=== PATIENT | male | born 1940 | race Asian ===

== ENCOUNTER 2018-04-06 19:00 | Inpatient (IN) | payer MEDICARE, OTHER ==
[~2018-04-06] VITALS: Ht 160 cm; Wt 66.7 kg
[2018-04-06 21:08] VITALS: BP 138/63
[2018-04-06] MEDS: DOCUSATE SODIUM 250 MG CAPSULE PO SCH (21:39)
[2018-04-06] MEDS: SENNA 187 MG TABLET PO SCH (21:39)
[2018-04-06] MEDS: ATORVASTATIN CALCIUM 40 MG TABLET PO SCH (21:39)
[2018-04-06] MEDS: FEXOFENADINE HCL 60 MG TABLET PO SCH (21:39)
[2018-04-06 22:27] LABS: APPEARANCE,URINE CLEAR (CLEAR); BILIRUBIN,URINE NEGATIVE (NEGATIVE); GLUCOSE, URINE (UA) NEGATIVE (NEGATIVE); KETONES,URINE NEGATIVE (NEGATIVE); LEUKOCYTE ESTERASE ,URINE NEGATIVE (NEGATIVE); NITRATE,URINE NEGATIVE (NEGATIVE); OCCULT BLOOD,URINE NEGATIVE (NEGATIVE); PH,URINE 6.5 (5.0-8.0); PROTEIN,URINE NEGATIVE (NEGATIVE); UROBILINOGEN,URINE 0.2 mg/dL (<=1.0)
[2018-04-06 22:39] LABS: BACTERIA,URINE None Seen /HPF (None Seen); RBC,URINE None Seen /HPF (0-2); WBC,URINE 0-2 /HPF (0-5)
[2018-04-06 22:40] LABS: SQUAMOUS EPITHELIAL CELL,UR Rare /LPF (None Seen)
[2018-04-06 23:03] LABS: GLUCOMETER DEV NAME(LOC) 2WR 2E; GLUCOSE,POINT OF CARE 124 MG/DL (70-110)
[2018-04-07 00:19] VITALS: BP 151/74
[2018-04-07 06:09] LABS: GLUCOMETER DEV NAME(LOC) 2WR 2E; GLUCOSE,POINT OF CARE 112 MG/DL (70-110)
[2018-04-07 06:22] LABS: BASOPHILS % (AUTO) 1.7 % (0.0-2.0); EOSINOPHILS % (AUTO) 7.5 % (1.0-6.0); HEMATOCRIT 36.8 % (41-53); HEMOGLOBIN 12.9 g/dL (13.5-17.5); LYMPHOCYTES # (AUTO) 1.2 K/uL (1.0-4.8); LYMPHOCYTES % (AUTO) 17.2 % (22.0-44.0); MEAN CORPUSCULAR HEMOGLOBIN 30.2 pg (26.0-34.0); MEAN CORPUSCULAR VOLUME 86 fL (80-100); MONOCYTES # (AUTO) 0.6 K/uL (0.1-1.0); MONOCYTES % (AUTO) 8.2 % (2.0-9.0); NEUTROPHILS # (AUTO) 4.7 K/uL (1.8-7.7); NEUTROPHILS % (AUTO) 65.4 % (40.0-70.0); PLATELET COUNT (AUTO) 246 K/uL (150-450); RED BLOOD CELL COUNT(AUTO) 4.26 MIL/uL (4.50-5.90)
[2018-04-07 06:38] LABS: ALBUMIN 3.6 g/dL (3.4-5.0); BILIRUBIN,TOTAL 0.7 mg/dL (0.1-1.0); CALCIUM, TOTAL 8.8 mg/dL (8.8-10.5); CREATININE 1.28 mg/dL (0.60-1.30); POTASSIUM 4.4 mmol/L (3.5-5.1); TOTAL PROTEIN, SERUM 7.6 g/dL (6.4-8.2)
[2018-04-07 07:27] VITALS: BP 133/66
[2018-04-07] MEDS: DOCUSATE SODIUM 250 MG CAPSULE PO SCH ×2 (09:29→20:39)
[2018-04-07] MEDS: HydrOXYzine HCL 10 MG TABLET PO SCH (09:30)
[2018-04-07] MEDS: ATENOLOL 25 MG TABLET PO SCH (09:30)
[2018-04-07] MEDS: MONTELUKAST SODIUM 10 MG TABLET PO SCH (09:31)
[2018-04-07] MEDS: FLUTICASONE PROPIONATE 50 MCG/SPRAY 16 GM NASAL SPRAY NASAL SCH (09:33)
[2018-04-07] MEDS: MetFORMIN HCL 500 MG TABLET PO SCH ×2 (09:33→09:41)
[2018-04-07] MEDS: ASPIRIN 81 MG CHEWABLE TABLET PO SCH (09:34)
[2018-04-07 12:39] LABS: GLUCOMETER DEV NAME(LOC) 2WR 1B; GLUCOSE,POINT OF CARE 121 MG/DL (70-110)
[2018-04-07 15:35] VITALS: BP 132/69
[2018-04-07] MEDS: RIVAROXABAN 15 MG TABLET PO SCH (17:09)
[2018-04-07 20:04] LABS: GLUCOMETER DEV NAME(LOC) 2WR 2E; GLUCOSE,POINT OF CARE 109 MG/DL (70-110)
[2018-04-07] MEDS: ATORVASTATIN CALCIUM 40 MG TABLET PO SCH (20:39)
[2018-04-07] MEDS: FEXOFENADINE HCL 60 MG TABLET PO SCH (20:39)
[2018-04-07] MEDS: SENNA 187 MG TABLET PO SCH (20:39)
[2018-04-07 22:30] LABS: GLUCOMETER DEV NAME(LOC) 2WR 2E; GLUCOSE,POINT OF CARE 179 MG/DL (70-110)
[2018-04-07] MEDS ORDERED: ACETAMINOPHEN 325 MG TABLET PO PRN (23:30)
[2018-04-07 23:48] VITALS: BP 140/71
[2018-04-08 06:09] LABS: GLUCOMETER DEV NAME(LOC) 2WR 1B; GLUCOSE,POINT OF CARE 111 MG/DL (70-110)
[2018-04-08 07:49] VITALS: BP 150/72
[2018-04-08] MEDS: ASPIRIN 81 MG CHEWABLE TABLET PO SCH (08:56)
[2018-04-08] MEDS: MONTELUKAST SODIUM 10 MG TABLET PO SCH (08:56)
[2018-04-08] MEDS: DOCUSATE SODIUM 250 MG CAPSULE PO SCH ×2 (08:56→20:13)
[2018-04-08] MEDS: MetFORMIN HCL 500 MG TABLET PO SCH ×2 (08:56→17:26)
[2018-04-08] MEDS: ATENOLOL 25 MG TABLET PO SCH (08:56)
[2018-04-08] MEDS: FLUTICASONE PROPIONATE 50 MCG/SPRAY 16 GM NASAL SPRAY NASAL SCH (08:57)
[2018-04-08] MEDS: HydrOXYzine HCL 10 MG TABLET PO SCH (09:00)
[2018-04-08 11:54] LABS: GLUCOMETER DEV NAME(LOC) 2WR 1B; GLUCOSE,POINT OF CARE 131 MG/DL (70-110)
[2018-04-08 15:15] VITALS: BP 125/61
[2018-04-08] MEDS: RIVAROXABAN 15 MG TABLET PO SCH (17:26)
[2018-04-08 18:19] LABS: GLUCOMETER DEV NAME(LOC) 2WR 2E; GLUCOSE,POINT OF CARE 119 MG/DL (70-110)
[2018-04-08] MEDS: ATORVASTATIN CALCIUM 40 MG TABLET PO SCH (20:13)
[2018-04-08] MEDS: SENNA 187 MG TABLET PO SCH (20:13)
[2018-04-08] MEDS: FEXOFENADINE HCL 60 MG TABLET PO SCH (20:14)
[2018-04-08 21:29] LABS: GLUCOMETER DEV NAME(LOC) 2WR 1B; GLUCOSE,POINT OF CARE 114 MG/DL (70-110)
[2018-04-08 23:20] VITALS: BP 123/64
[2018-04-09] MEDS: ACETAMINOPHEN 325 MG TABLET PO PRN ×2 (00:02→08:36)
[2018-04-09 06:24] LABS: GLUCOMETER DEV NAME(LOC) 2WR 2E; GLUCOSE,POINT OF CARE 113 MG/DL (70-110)
[2018-04-09 07:30] VITALS: BP 138/75
[2018-04-09] MEDS: DOCUSATE SODIUM 250 MG CAPSULE PO SCH ×2 (08:07→20:02)
[2018-04-09] MEDS: MetFORMIN HCL 500 MG TABLET PO SCH ×2 (08:07→17:40)
[2018-04-09] MEDS: ASPIRIN 81 MG CHEWABLE TABLET PO SCH (08:07)
[2018-04-09] MEDS: ATENOLOL 25 MG TABLET PO SCH (08:08)
[2018-04-09] MEDS: FLUTICASONE PROPIONATE 50 MCG/SPRAY 16 GM NASAL SPRAY NASAL SCH (08:08)
[2018-04-09] MEDS: MONTELUKAST SODIUM 10 MG TABLET PO SCH (08:10)
[2018-04-09] MEDS ORDERED: *NON-FORMULARY MED [ENTER DRUG, DOSE, FREQ IN COMMENTS] CLINICAL ONE (11:15)
[2018-04-09] MEDS: FAMOTIDINE 20 MG TABLET PO SCH (12:15)
[2018-04-09 12:48] LABS: GLUCOMETER DEV NAME(LOC) 2WR 1B; GLUCOSE,POINT OF CARE 90 MG/DL (70-110)
[2018-04-09 15:22] VITALS: BP 136/78
[2018-04-09] MEDS: RIVAROXABAN 15 MG TABLET PO SCH (17:40)
[2018-04-09 17:59] LABS: GLUCOMETER DEV NAME(LOC) 2WR 2E; GLUCOSE,POINT OF CARE 139 MG/DL (70-110)
[2018-04-09] MEDS: SENNA 187 MG TABLET PO SCH (20:02)
[2018-04-09] MEDS: FEXOFENADINE HCL 60 MG TABLET PO SCH (20:04)
[2018-04-09] MEDS: HydrOXYzine HCL 10 MG TABLET PO SCH (20:04)
[2018-04-09] MEDS: GABAPENTIN 300 MG CAPSULE PO SCH (20:04)
[2018-04-09] MEDS: ATORVASTATIN CALCIUM 40 MG TABLET PO SCH (20:04)
[2018-04-09 22:08] LABS: GLUCOMETER DEV NAME(LOC) 2WR 2E; GLUCOSE,POINT OF CARE 145 MG/DL (70-110)
[2018-04-10 02:56] VITALS: BP 128/69
[2018-04-10 05:54] LABS: GLUCOMETER DEV NAME(LOC) 2WR 1B; GLUCOSE,POINT OF CARE 118 MG/DL (70-110)
[2018-04-10 07:19] VITALS: BP 150/80
[2018-04-10] MEDS: DOCUSATE SODIUM 250 MG CAPSULE PO SCH ×2 (07:52→21:38)
[2018-04-10] MEDS: FLUTICASONE PROPIONATE 50 MCG/SPRAY 16 GM NASAL SPRAY NASAL SCH (07:52)
[2018-04-10] MEDS: ASPIRIN 81 MG CHEWABLE TABLET PO SCH (07:53)
[2018-04-10] MEDS: MetFORMIN HCL 500 MG TABLET PO SCH ×2 (07:53→17:00)
[2018-04-10] MEDS: ATENOLOL 25 MG TABLET PO SCH (07:53)
[2018-04-10] MEDS: FAMOTIDINE 20 MG TABLET PO SCH (07:53)
[2018-04-10] MEDS: MONTELUKAST SODIUM 10 MG TABLET PO SCH (07:53)
[2018-04-10 13:28] LABS: GLUCOMETER DEV NAME(LOC) 2WR 2E; GLUCOSE,POINT OF CARE 125 MG/DL (70-110)
[2018-04-10] MEDS ORDERED: ALBUTEROL SULFATE 2.5 MG/0.5 ML NEB SOLUTION NEB PRN (14:15)
[2018-04-10 16:27] VITALS: BP 119/65
[2018-04-10] MEDS: TRIAMCINOLONE 0.1% 15 GM CREAM TP SCH (17:00)
[2018-04-10] MEDS: BACITRACIN 28.4 GM OINTMENT TP SCH ×2 (17:00→21:38)
[2018-04-10] MEDS: RIVAROXABAN 15 MG TABLET PO SCH (17:05)
[2018-04-10 18:40] LABS: GLUCOMETER DEV NAME(LOC) 2WR 1B; GLUCOSE,POINT OF CARE 125 MG/DL (70-110)
[2018-04-10] MEDS: HydrOXYzine HCL 10 MG TABLET PO SCH (21:37)
[2018-04-10] MEDS: SENNA 187 MG TABLET PO SCH (21:37)
[2018-04-10] MEDS: FEXOFENADINE HCL 60 MG TABLET PO SCH (21:37)
[2018-04-10] MEDS: GABAPENTIN 300 MG CAPSULE PO SCH (21:37)
[2018-04-10] MEDS: ATORVASTATIN CALCIUM 40 MG TABLET PO SCH (21:38)
[2018-04-10 22:14] LABS: GLUCOMETER DEV NAME(LOC) 2WR 1B; GLUCOSE,POINT OF CARE 114 MG/DL (70-110)
[2018-04-11] VITALS: BP 138/81
[2018-04-11] MEDS: MELATONIN 3 MG TABLET PO PRN ×2 (00:16→22:02)
[2018-04-11] MEDS ORDERED: DUPI300S SQ (02:45)
[2018-04-11] MEDS ORDERED: METF-960 PO (02:45)
[2018-04-11] MEDS ORDERED: FEXO-58 PO (02:45)
[2018-04-11] MEDS ORDERED: ATOR20TA86 PO (02:45)
[2018-04-11] MEDS ORDERED: ATEN25TA PO (02:45)
[2018-04-11] MEDS ORDERED: MONT10TA21 PO (02:45)
[2018-04-11] MEDS ORDERED: RIVA15T PO (02:45)
[2018-04-11] MEDS ORDERED: GLIM2 PO (02:45)
[2018-04-11] MEDS ORDERED: LORA10TA7 PO (02:45)
[2018-04-11 06:20] LABS: GLUCOMETER DEV NAME(LOC) 2WR 1B; GLUCOSE,POINT OF CARE 121 MG/DL (70-110)
[2018-04-11 08:04] VITALS: BP 146/75
[2018-04-11] MEDS: BACITRACIN 28.4 GM OINTMENT TP SCH ×3 (08:45→20:38)
[2018-04-11] MEDS: ASPIRIN 81 MG CHEWABLE TABLET PO SCH (08:45)
[2018-04-11] MEDS: TRIAMCINOLONE 0.1% 15 GM CREAM TP SCH (08:45)
[2018-04-11] MEDS: FLUTICASONE PROPIONATE 50 MCG/SPRAY 16 GM NASAL SPRAY NASAL SCH (08:45)
[2018-04-11] MEDS: DOCUSATE SODIUM 250 MG CAPSULE PO SCH ×2 (08:46→20:41)
[2018-04-11] MEDS: MONTELUKAST SODIUM 10 MG TABLET PO SCH (08:46)
[2018-04-11] MEDS: MetFORMIN HCL 500 MG TABLET PO SCH ×2 (08:46→17:00)
[2018-04-11] MEDS: ATENOLOL 25 MG TABLET PO SCH (08:46)
[2018-04-11] MEDS: FAMOTIDINE 20 MG TABLET PO SCH (08:47)
[2018-04-11] MEDS: POLYETHYLENE GLYCOL 3350 17 GM PACKET PO SCH (13:08)
[2018-04-11 14:38] LABS: GLUCOMETER DEV NAME(LOC) 2WR 2E; GLUCOSE,POINT OF CARE 91 MG/DL (70-110)
[2018-04-11] MEDS: RIVAROXABAN 15 MG TABLET PO SCH (17:00)
[2018-04-11 17:22] VITALS: BP 113/65
[2018-04-11 17:49] LABS: GLUCOMETER DEV NAME(LOC) 2WR 2E; GLUCOSE,POINT OF CARE 121 MG/DL (70-110)
[2018-04-11] MEDS: GABAPENTIN 300 MG CAPSULE PO SCH (20:39)
[2018-04-11] MEDS: ATORVASTATIN CALCIUM 40 MG TABLET PO SCH (20:39)
[2018-04-11] MEDS: HydrOXYzine HCL 10 MG TABLET PO SCH (20:39)
[2018-04-11] MEDS: FEXOFENADINE HCL 60 MG TABLET PO SCH (20:39)
[2018-04-11] MEDS: SENNA 187 MG TABLET PO SCH (20:39)
[2018-04-11 22:00] LABS: GLUCOMETER DEV NAME(LOC) 2WR 2E; GLUCOSE,POINT OF CARE 105 MG/DL (70-110)
[2018-04-11 23:21] VITALS: BP 140/66
[2018-04-12 06:35] LABS: GLUCOMETER DEV NAME(LOC) 2WR 2E; GLUCOSE,POINT OF CARE 133 MG/DL (70-110)
[2018-04-12 07:28] VITALS: BP_SYST 134; BP_SYST 145; BP_DIAS 69; BP_DIAS 78
[2018-04-12] MEDS: TRIAMCINOLONE 0.1% 15 GM CREAM TP SCH (07:59)
[2018-04-12] MEDS: FLUTICASONE PROPIONATE 50 MCG/SPRAY 16 GM NASAL SPRAY NASAL SCH (07:59)
[2018-04-12] MEDS: DOCUSATE SODIUM 250 MG CAPSULE PO SCH ×2 (07:59→21:00)
[2018-04-12] MEDS: ASPIRIN 81 MG CHEWABLE TABLET PO SCH (07:59)
[2018-04-12] MEDS: MetFORMIN HCL 500 MG TABLET PO SCH ×2 (07:59→17:13)
[2018-04-12] MEDS: BACITRACIN 28.4 GM OINTMENT TP SCH ×3 (07:59→21:54)
[2018-04-12] MEDS: POLYETHYLENE GLYCOL 3350 17 GM PACKET PO SCH (07:59)
[2018-04-12] MEDS: FAMOTIDINE 20 MG TABLET PO SCH (08:00)
[2018-04-12] MEDS: ATENOLOL 25 MG TABLET PO SCH (08:00)
[2018-04-12] MEDS: MONTELUKAST SODIUM 10 MG TABLET PO SCH (08:00)
[2018-04-12 09:36] VITALS: BP 134/77
[2018-04-12 12:59] LABS: GLUCOMETER DEV NAME(LOC) 2WR 1B; GLUCOSE,POINT OF CARE 94 MG/DL (70-110)
[2018-04-12 13:10] VITALS: BP 133/69
[2018-04-12] MEDS: ACETAMINOPHEN 325 MG TABLET PO PRN (13:58)
[2018-04-12 15:01] VITALS: BP 146/72
[2018-04-12] MEDS: RIVAROXABAN 15 MG TABLET PO SCH (17:13)
[2018-04-12 18:09] LABS: GLUCOMETER DEV NAME(LOC) 2WR 2E; GLUCOSE,POINT OF CARE 104 MG/DL (70-110)
[2018-04-12] MEDS: GABAPENTIN 300 MG CAPSULE PO SCH (21:54)
[2018-04-12] MEDS: ATORVASTATIN CALCIUM 40 MG TABLET PO SCH (21:54)
[2018-04-12] MEDS: SENNA 187 MG TABLET PO SCH (21:54)
[2018-04-12] MEDS: MELATONIN 3 MG TABLET PO PRN (21:55)
[2018-04-12] MEDS: FEXOFENADINE HCL 60 MG TABLET PO SCH (21:56)
[2018-04-12] MEDS: HydrOXYzine HCL 10 MG TABLET PO SCH (21:56)
[2018-04-12 22:39] LABS: GLUCOMETER DEV NAME(LOC) 2WR 2E; GLUCOSE,POINT OF CARE 99 MG/DL (70-110)
[2018-04-13 05:32] VITALS: BP 140/74
[2018-04-13 05:44] LABS: GLUCOMETER DEV NAME(LOC) 2WR 1B; GLUCOSE,POINT OF CARE 115 MG/DL (70-110)
[2018-04-13 06:45] LABS: BASOPHILS % (AUTO) 1.9 % (0.0-2.0); HEMATOCRIT 35.6 % (41-53); HEMOGLOBIN 12.4 g/dL (13.5-17.5); LYMPHOCYTES # (AUTO) 1.1 K/uL (1.0-4.8); LYMPHOCYTES % (AUTO) 20.1 % (22.0-44.0); MEAN CORPUSCULAR HEMOGLOBIN 30.3 pg (26.0-34.0); MEAN CORPUSCULAR HGB CONC 34.8 G/dL (31.0-37.0); MEAN CORPUSCULAR VOLUME 87 fL (80-100); MONOCYTES # (AUTO) 0.4 K/uL (0.1-1.0); NEUTROPHILS # (AUTO) 3.4 K/uL (1.8-7.7); PLATELET COUNT (AUTO) 257 K/uL (150-450); RED BLOOD CELL COUNT(AUTO) 4.09 MIL/uL (4.50-5.90); RED CELL DISTRIBUTION WIDTH 13.6 % (11.5-14.5)
[2018-04-13 06:53] LABS: ANION GAP 7 mmol/L (8-16); CALCIUM, TOTAL 8.8 mg/dL (8.8-10.5); CARBON DIOXIDE 29 mmol/L (22-29); CHLORIDE 103 mmol/L (98-107); CREATININE 1.05 mg/dL (0.60-1.30); GLUCOSE,RANDOM 108 mg/dL (70-110); POTASSIUM 4.3 mmol/L (3.5-5.1); SODIUM SERUM 139 mmol/L (136-145); UREA NITROGEN, BLOOD 19 mg/dL (7-18)
[2018-04-13 06:55] LABS: GLOMERULAR FILTR. RATE CALC > 60 mL/min (>60)
[2018-04-13 07:29] VITALS: BP 133/70
[2018-04-13] MEDS ORDERED: DOCUSATE SODIUM 250 MG CAPSULE PO PRN (07:45)
[2018-04-13] MEDS: POLYETHYLENE GLYCOL 3350 17 GM PACKET PO SCH (08:14)
[2018-04-13] MEDS: TRIAMCINOLONE 0.1% 15 GM CREAM TP SCH (08:14)
[2018-04-13] MEDS: MONTELUKAST SODIUM 10 MG TABLET PO SCH (08:15)
[2018-04-13] MEDS: BACITRACIN 28.4 GM OINTMENT TP SCH ×3 (08:15→20:44)
[2018-04-13] MEDS: ATENOLOL 25 MG TABLET PO SCH (08:15)
[2018-04-13] MEDS: ASPIRIN 81 MG CHEWABLE TABLET PO SCH (08:15)
[2018-04-13] MEDS: FLUTICASONE PROPIONATE 50 MCG/SPRAY 16 GM NASAL SPRAY NASAL SCH (08:15)
[2018-04-13] MEDS: FAMOTIDINE 20 MG TABLET PO SCH (08:16)
[2018-04-13] MEDS: MetFORMIN HCL 500 MG TABLET PO SCH ×2 (08:16→17:11)
[2018-04-13 15:15] VITALS: BP 112/67
[2018-04-13] MEDS: RIVAROXABAN 15 MG TABLET PO SCH (17:11)
[2018-04-13 19:09] LABS: GLUCOMETER DEV NAME(LOC) 2WR 2E; GLUCOSE,POINT OF CARE 126 MG/DL (70-110)
[2018-04-13] MEDS: GABAPENTIN 300 MG CAPSULE PO SCH (20:44)
[2018-04-13] MEDS: ATORVASTATIN CALCIUM 40 MG TABLET PO SCH (20:44)
[2018-04-13] MEDS: MELATONIN 3 MG TABLET PO PRN (20:45)
[2018-04-13] MEDS: HydrOXYzine HCL 10 MG TABLET PO SCH (20:45)
[2018-04-13] MEDS: FEXOFENADINE HCL 60 MG TABLET PO SCH (20:45)
[2018-04-14 00:16] VITALS: BP 124/58
[2018-04-14 06:09] LABS: GLUCOMETER DEV NAME(LOC) 2WR 2E; GLUCOSE,POINT OF CARE 93 MG/DL (70-110)
[2018-04-14 07:41] VITALS: BP 136/78
[2018-04-14] MEDS: TRIAMCINOLONE 0.1% 15 GM CREAM TP SCH (07:51)
[2018-04-14] MEDS: BACITRACIN 28.4 GM OINTMENT TP SCH ×3 (07:51→21:35)
[2018-04-14] MEDS: POLYETHYLENE GLYCOL 3350 17 GM PACKET PO SCH (07:51)
[2018-04-14] MEDS: MetFORMIN HCL 500 MG TABLET PO SCH ×2 (07:51→17:18)
[2018-04-14] MEDS: MONTELUKAST SODIUM 10 MG TABLET PO SCH (07:52)
[2018-04-14] MEDS: FLUTICASONE PROPIONATE 50 MCG/SPRAY 16 GM NASAL SPRAY NASAL SCH (07:52)
[2018-04-14] MEDS: ATENOLOL 25 MG TABLET PO SCH (07:52)
[2018-04-14] MEDS: ASPIRIN 81 MG CHEWABLE TABLET PO SCH (07:53)
[2018-04-14] MEDS: FAMOTIDINE 20 MG TABLET PO SCH (07:53)
[2018-04-14 15:01] VITALS: BP 130/69
[2018-04-14 17:14] LABS: GLUCOMETER DEV NAME(LOC) 2WR 2E; GLUCOSE,POINT OF CARE 122 MG/DL (70-110)
[2018-04-14] MEDS: RIVAROXABAN 15 MG TABLET PO SCH (17:18)
[2018-04-14] MEDS: HydrOXYzine HCL 10 MG TABLET PO SCH (21:34)
[2018-04-14] MEDS: ATORVASTATIN CALCIUM 40 MG TABLET PO SCH (21:34)
[2018-04-14] MEDS: FEXOFENADINE HCL 60 MG TABLET PO SCH (21:34)
[2018-04-14] MEDS: GABAPENTIN 300 MG CAPSULE PO SCH (21:34)
[2018-04-14] MEDS: MELATONIN 3 MG TABLET PO PRN (21:36)
[2018-04-14 23:00] VITALS: BP 142/75
[2018-04-15 05:44] LABS: GLUCOMETER DEV NAME(LOC) 2WR 2E; GLUCOSE,POINT OF CARE 94 MG/DL (70-110)
[2018-04-15 07:11] LABS: CHOL/HDL RATIO 3.3 (4.2-7.3)
[2018-04-15 07:19] VITALS: BP 113/65
[2018-04-15 07:33] LABS: % IRON SATURATION 28.8 % (30-44); PROSTATE SPECIFIC ANTIGEN 0.97 ng/mL (0.00-4.00)
[2018-04-15] MEDS: POLYETHYLENE GLYCOL 3350 17 GM PACKET PO SCH (07:59)
[2018-04-15] MEDS: FAMOTIDINE 20 MG TABLET PO SCH (07:59)
[2018-04-15] MEDS: MONTELUKAST SODIUM 10 MG TABLET PO SCH (07:59)
[2018-04-15] MEDS: BACITRACIN 28.4 GM OINTMENT TP SCH ×3 (07:59→20:10)
[2018-04-15] MEDS: FLUTICASONE PROPIONATE 50 MCG/SPRAY 16 GM NASAL SPRAY NASAL SCH (07:59)
[2018-04-15] MEDS: ASPIRIN 81 MG CHEWABLE TABLET PO SCH (07:59)
[2018-04-15] MEDS: ATENOLOL 25 MG TABLET PO SCH (07:59)
[2018-04-15] MEDS: MetFORMIN HCL 500 MG TABLET PO SCH ×2 (07:59→17:11)
[2018-04-15] MEDS: TRIAMCINOLONE 0.1% 15 GM CREAM TP SCH (08:00)
[2018-04-15 16:04] VITALS: BP 117/57
[2018-04-15] MEDS: RIVAROXABAN 15 MG TABLET PO SCH (17:11)
[2018-04-15] MEDS: ATORVASTATIN CALCIUM 40 MG TABLET PO SCH (20:06)
[2018-04-15] MEDS: GABAPENTIN 300 MG CAPSULE PO SCH (20:06)
[2018-04-15] MEDS: HydrOXYzine HCL 10 MG TABLET PO SCH (20:06)
[2018-04-15] MEDS: FEXOFENADINE HCL 60 MG TABLET PO SCH (20:06)
[2018-04-15 21:19] LABS: GLUCOMETER DEV NAME(LOC) 2WR 2E; GLUCOSE,POINT OF CARE 131 MG/DL (70-110)
[2018-04-16 05:00] VITALS: BP 127/72
[2018-04-16 05:39] LABS: GLUCOMETER DEV NAME(LOC) 2WR 1B; GLUCOSE,POINT OF CARE 94 MG/DL (70-110)
[2018-04-16 07:45] VITALS: BP 126/67
[2018-04-16] MEDS: BISACODYL 5 MG EC TABLET PO PRN (08:28)
[2018-04-16] MEDS: FAMOTIDINE 20 MG TABLET PO SCH (08:28)
[2018-04-16] MEDS: TRIAMCINOLONE 0.1% 15 GM CREAM TP SCH (08:28)
[2018-04-16] MEDS: MetFORMIN HCL 500 MG TABLET PO SCH ×2 (08:28→16:13)
[2018-04-16] MEDS: MONTELUKAST SODIUM 10 MG TABLET PO SCH (08:28)
[2018-04-16] MEDS: ASPIRIN 81 MG CHEWABLE TABLET PO SCH (08:28)
[2018-04-16] MEDS: FLUTICASONE PROPIONATE 50 MCG/SPRAY 16 GM NASAL SPRAY NASAL SCH (08:28)
[2018-04-16] MEDS: BACITRACIN 28.4 GM OINTMENT TP SCH ×3 (08:29→20:38)
[2018-04-16] MEDS: ATENOLOL 25 MG TABLET PO SCH (08:29)
[2018-04-16] MEDS: POLYETHYLENE GLYCOL 3350 17 GM PACKET PO SCH (08:32)
[2018-04-16] MEDS ORDERED: [UNRECOGNIZED DRUG - OTHER] SQ SCH (09:00)
[2018-04-16] MEDS ORDERED: DUPILUMAB SQ SCH (09:00)
[2018-04-16 15:45] VITALS: BP 118/58
[2018-04-16] MEDS: RIVAROXABAN 15 MG TABLET PO SCH (16:12)
[2018-04-16 17:54] LABS: GLUCOMETER DEV NAME(LOC) 2WR 1B; GLUCOSE,POINT OF CARE 101 MG/DL (70-110)
[2018-04-16] MEDS: HydrOXYzine HCL 10 MG TABLET PO SCH (20:39)
[2018-04-16] MEDS: FEXOFENADINE HCL 60 MG TABLET PO SCH (20:39)
[2018-04-16] MEDS: ATORVASTATIN CALCIUM 40 MG TABLET PO SCH (20:40)
[2018-04-16] MEDS: GABAPENTIN 300 MG CAPSULE PO SCH (20:40)
[2018-04-16 23:30] VITALS: BP 142/75
[2018-04-17 07:32] VITALS: BP 124/65
[2018-04-17] MEDS: FLUTICASONE PROPIONATE 50 MCG/SPRAY 16 GM NASAL SPRAY NASAL SCH (07:50)
[2018-04-17] MEDS: TRIAMCINOLONE 0.1% 15 GM CREAM TP SCH (07:50)
[2018-04-17] MEDS: BACITRACIN 28.4 GM OINTMENT TP SCH ×3 (07:50→21:21)
[2018-04-17] MEDS: FAMOTIDINE 20 MG TABLET PO SCH (07:50)
[2018-04-17] MEDS: ASPIRIN 81 MG CHEWABLE TABLET PO SCH (07:50)
[2018-04-17] MEDS: MetFORMIN HCL 500 MG TABLET PO SCH ×2 (07:51→16:59)
[2018-04-17] MEDS: BISACODYL 5 MG EC TABLET PO PRN (07:51)
[2018-04-17] MEDS: ATENOLOL 25 MG TABLET PO SCH (07:51)
[2018-04-17] MEDS: MONTELUKAST SODIUM 10 MG TABLET PO SCH (07:51)
[2018-04-17 11:31] LABS: GLUCOMETER DEV NAME(LOC) 2WR 1B; GLUCOSE,POINT OF CARE 152 MG/DL (70-110)
[2018-04-17 11:32] LABS: GLUCOMETER DEV NAME(LOC) 2WR 1B; GLUCOSE,POINT OF CARE 90 MG/DL (70-110)
[2018-04-17 16:12] VITALS: BP 117/64
[2018-04-17] MEDS: RIVAROXABAN 15 MG TABLET PO SCH (16:59)
[2018-04-17 18:29] LABS: GLUCOMETER DEV NAME(LOC) 2WR 2E; GLUCOSE,POINT OF CARE 121 MG/DL (70-110)
[2018-04-17 21:18] VITALS: BP 130/76
[2018-04-17] MEDS: HydrOXYzine HCL 10 MG TABLET PO SCH (21:20)
[2018-04-17] MEDS: FEXOFENADINE HCL 60 MG TABLET PO SCH (21:20)
[2018-04-17] MEDS: GABAPENTIN 300 MG CAPSULE PO SCH (21:21)
[2018-04-17] MEDS: ATORVASTATIN CALCIUM 40 MG TABLET PO SCH (21:21)
[2018-04-17] MEDS: MELATONIN 3 MG TABLET PO PRN (21:56)
[2018-04-17 23:31] VITALS: BP 140/72
[2018-04-18 06:29] LABS: GLUCOMETER DEV NAME(LOC) 2WR 2E; GLUCOSE,POINT OF CARE 108 MG/DL (70-110)
[2018-04-18 07:05] VITALS: BP 130/65
[2018-04-18] MEDS: ATENOLOL 25 MG TABLET PO SCH (07:47)
[2018-04-18] MEDS: TRIAMCINOLONE 0.1% 15 GM CREAM TP SCH (07:47)
[2018-04-18] MEDS: MetFORMIN HCL 500 MG TABLET PO SCH ×2 (07:47→17:10)
[2018-04-18] MEDS: BACITRACIN 28.4 GM OINTMENT TP SCH ×3 (07:47→20:30)
[2018-04-18] MEDS: FLUTICASONE PROPIONATE 50 MCG/SPRAY 16 GM NASAL SPRAY NASAL SCH (07:47)
[2018-04-18] MEDS: FAMOTIDINE 20 MG TABLET PO SCH (07:47)
[2018-04-18] MEDS: ASPIRIN 81 MG CHEWABLE TABLET PO SCH (07:48)
[2018-04-18] MEDS: MONTELUKAST SODIUM 10 MG TABLET PO SCH (07:48)
[2018-04-18 15:40] VITALS: BP 140/70
[2018-04-18] MEDS: RIVAROXABAN 15 MG TABLET PO SCH (17:10)
[2018-04-18] MEDS: ATORVASTATIN CALCIUM 40 MG TABLET PO SCH (20:30)
[2018-04-18] MEDS: HydrOXYzine HCL 10 MG TABLET PO SCH (20:30)
[2018-04-18] MEDS: GABAPENTIN 300 MG CAPSULE PO SCH (20:31)
[2018-04-18] MEDS: FEXOFENADINE HCL 60 MG TABLET PO SCH (20:31)
[2018-04-18] MEDS: MELATONIN 3 MG TABLET PO PRN (21:13)
[2018-04-18 21:29] LABS: GLUCOMETER DEV NAME(LOC) 2WR 2E; GLUCOSE,POINT OF CARE 112 MG/DL (70-110)
[2018-04-18 23:00] VITALS: BP 116/71
[2018-04-19 06:36] LABS: GLUCOMETER DEV NAME(LOC) 2WR 2E; GLUCOSE,POINT OF CARE 98 MG/DL (70-110)
[2018-04-19] MEDS: MONTELUKAST SODIUM 10 MG TABLET PO SCH (08:10)
[2018-04-19] MEDS: ASPIRIN 81 MG CHEWABLE TABLET PO SCH (08:10)
[2018-04-19] MEDS: MetFORMIN HCL 500 MG TABLET PO SCH ×2 (08:10→16:31)
[2018-04-19] MEDS: ATENOLOL 25 MG TABLET PO SCH (08:10)
[2018-04-19] MEDS: FAMOTIDINE 20 MG TABLET PO SCH (08:10)
[2018-04-19] MEDS: BACITRACIN 28.4 GM OINTMENT TP SCH ×3 (08:11→20:32)
[2018-04-19] MEDS: TRIAMCINOLONE 0.1% 15 GM CREAM TP SCH (08:12)
[2018-04-19] MEDS: FLUTICASONE PROPIONATE 50 MCG/SPRAY 16 GM NASAL SPRAY NASAL SCH (08:12)
[2018-04-19] MEDS: BISACODYL 5 MG EC TABLET PO PRN (08:20)
[2018-04-19 10:36] VITALS: BP 125/64
[2018-04-19 15:26] VITALS: BP 126/62
[2018-04-19] MEDS: RIVAROXABAN 15 MG TABLET PO SCH (16:31)
[2018-04-19 18:06] LABS: GLUCOMETER DEV NAME(LOC) 2WR 1C; GLUCOSE,POINT OF CARE 163 MG/DL (70-110)
[2018-04-19] MEDS: FEXOFENADINE HCL 60 MG TABLET PO SCH (20:31)
[2018-04-19] MEDS: ATORVASTATIN CALCIUM 40 MG TABLET PO SCH (20:31)
[2018-04-19] MEDS: HydrOXYzine HCL 10 MG TABLET PO SCH (20:31)
[2018-04-19] MEDS: GABAPENTIN 300 MG CAPSULE PO SCH (20:32)
[2018-04-20 04:30] VITALS: BP 129/73
[2018-04-20 07:50] VITALS: BP 122/68
[2018-04-20] MEDS: FAMOTIDINE 20 MG TABLET PO SCH (08:15)
[2018-04-20] MEDS: ATENOLOL 25 MG TABLET PO SCH (08:15)
[2018-04-20] MEDS: ASPIRIN 81 MG CHEWABLE TABLET PO SCH (08:15)
[2018-04-20] MEDS: MetFORMIN HCL 500 MG TABLET PO SCH ×2 (08:15→17:51)
[2018-04-20] MEDS: FLUTICASONE PROPIONATE 50 MCG/SPRAY 16 GM NASAL SPRAY NASAL SCH (08:15)
[2018-04-20] MEDS: MONTELUKAST SODIUM 10 MG TABLET PO SCH (08:15)
[2018-04-20] MEDS: BACITRACIN 28.4 GM OINTMENT TP SCH (08:16)
[2018-04-20] MEDS: TRIAMCINOLONE 0.1% 15 GM CREAM TP SCH (08:16)
[2018-04-20 13:36] LABS: GLUCOMETER DEV NAME(LOC) 2WR 1C; GLUCOSE,POINT OF CARE 113 MG/DL (70-110)
[2018-04-20 16:15] VITALS: BP 149/63
[2018-04-20] MEDS: RIVAROXABAN 15 MG TABLET PO SCH (17:51)
[2018-04-20] MEDS: GABAPENTIN 300 MG CAPSULE PO SCH (20:53)
[2018-04-20] MEDS: FEXOFENADINE HCL 60 MG TABLET PO SCH (20:53)
[2018-04-20] MEDS: ATORVASTATIN CALCIUM 40 MG TABLET PO SCH (20:53)
[2018-04-20] MEDS: HydrOXYzine HCL 10 MG TABLET PO SCH (20:53)
[2018-04-20] MEDS: MELATONIN 3 MG TABLET PO PRN (20:55)
[2018-04-21 05:30] VITALS: BP 137/75
[2018-04-21 07:20] VITALS: BP 120/65
[2018-04-21] MEDS: FAMOTIDINE 20 MG TABLET PO SCH (08:31)
[2018-04-21] MEDS: MetFORMIN HCL 500 MG TABLET PO SCH ×2 (08:31→17:32)
[2018-04-21] MEDS: ASPIRIN 81 MG CHEWABLE TABLET PO SCH (08:32)
[2018-04-21] MEDS: ATENOLOL 25 MG TABLET PO SCH (08:32)
[2018-04-21] MEDS: MONTELUKAST SODIUM 10 MG TABLET PO SCH (08:32)
[2018-04-21] MEDS: TRIAMCINOLONE 0.1% 15 GM CREAM TP SCH (08:33)
[2018-04-21] MEDS: FLUTICASONE PROPIONATE 50 MCG/SPRAY 16 GM NASAL SPRAY NASAL SCH (08:33)
[2018-04-21 10:00] LABS: GLUCOMETER DEV NAME(LOC) 2WR 2E; GLUCOSE,POINT OF CARE 137 MG/DL (70-110)
[2018-04-21 15:15] VITALS: BP 122/67
[2018-04-21] MEDS: RIVAROXABAN 15 MG TABLET PO SCH (17:32)
[2018-04-21] MEDS: FEXOFENADINE HCL 60 MG TABLET PO SCH (21:06)
[2018-04-21] MEDS: GABAPENTIN 300 MG CAPSULE PO SCH (21:06)
[2018-04-21] MEDS: MELATONIN 3 MG TABLET PO PRN (21:06)
[2018-04-21] MEDS: ATORVASTATIN CALCIUM 40 MG TABLET PO SCH (21:06)
[2018-04-21] MEDS: HydrOXYzine HCL 10 MG TABLET PO SCH (21:06)
[2018-04-22 00:11] LABS: GLUCOMETER DEV NAME(LOC) 2WR 2E; GLUCOSE,POINT OF CARE 105 MG/DL (70-110)
[2018-04-22 04:30] VITALS: BP 133/75
[2018-04-22 07:54] VITALS: BP 127/70
[2018-04-22] MEDS: MONTELUKAST SODIUM 10 MG TABLET PO SCH (08:29)
[2018-04-22] MEDS: FAMOTIDINE 20 MG TABLET PO SCH (08:30)
[2018-04-22] MEDS: MetFORMIN HCL 500 MG TABLET PO SCH ×2 (08:30→17:39)
[2018-04-22] MEDS: FLUTICASONE PROPIONATE 50 MCG/SPRAY 16 GM NASAL SPRAY NASAL SCH (08:30)
[2018-04-22] MEDS: ASPIRIN 81 MG CHEWABLE TABLET PO SCH (08:30)
[2018-04-22] MEDS: TRIAMCINOLONE 0.1% 15 GM CREAM TP SCH (08:31)
[2018-04-22] MEDS: ATENOLOL 25 MG TABLET PO SCH (08:32)
[2018-04-22 15:57] LABS: GLUCOMETER DEV NAME(LOC) 2WR 2E; GLUCOSE,POINT OF CARE 111 MG/DL (70-110)
[2018-04-22 16:43] LABS: GLUCOMETER DEV NAME(LOC) 2WR 2E; GLUCOSE,POINT OF CARE 97 MG/DL (70-110)
[2018-04-22 17:20] VITALS: BP 116/63
[2018-04-22] MEDS: RIVAROXABAN 15 MG TABLET PO SCH (17:39)
[2018-04-22] MEDS: FEXOFENADINE HCL 60 MG TABLET PO SCH (21:39)
[2018-04-22] MEDS: GABAPENTIN 300 MG CAPSULE PO SCH (21:39)
[2018-04-22] MEDS: MELATONIN 3 MG TABLET PO PRN (21:39)
[2018-04-22] MEDS: ATORVASTATIN CALCIUM 40 MG TABLET PO SCH (21:39)
[2018-04-22] MEDS: HydrOXYzine HCL 10 MG TABLET PO SCH (21:40)
[2018-04-22 22:34] LABS: GLUCOMETER DEV NAME(LOC) 2WR 1C; GLUCOSE,POINT OF CARE 114 MG/DL (70-110)
[2018-04-23 00:30] VITALS: BP 138/66
[2018-04-23 06:16] LABS: GLUCOMETER DEV NAME(LOC) 2WR 2E; GLUCOSE,POINT OF CARE 90 MG/DL (70-110)
[2018-04-23 06:20] LABS: BASOPHILS % (AUTO) 1.6 % (0.0-2.0); EOSINOPHILS % (AUTO) 7.8 % (1.0-6.0); HEMATOCRIT 35.6 % (41-53); HEMOGLOBIN 12.5 g/dL (13.5-17.5); LYMPHOCYTES # (AUTO) 1.2 K/uL (1.0-4.8); LYMPHOCYTES % (AUTO) 19.4 % (22.0-44.0); MEAN CORPUSCULAR HEMOGLOBIN 30.4 pg (26.0-34.0); MEAN CORPUSCULAR HGB CONC 35.1 G/dL (31.0-37.0); MEAN CORPUSCULAR VOLUME 87 fL (80-100); MONOCYTES # (AUTO) 0.4 K/uL (0.1-1.0); NEUTROPHILS # (AUTO) 3.8 K/uL (1.8-7.7); NEUTROPHILS % (AUTO) 64.2 % (40.0-70.0); PLATELET COUNT (AUTO) 233 K/uL (150-450); RED CELL DISTRIBUTION WIDTH 13.7 % (11.5-14.5)
[2018-04-23 06:27] LABS: ANION GAP 9 mmol/L (8-16); CALCIUM, TOTAL 8.7 mg/dL (8.8-10.5); CARBON DIOXIDE 28 mmol/L (22-29); CHLORIDE 105 mmol/L (98-107); CREATININE 0.86 mg/dL (0.60-1.30); GLUCOSE,RANDOM 97 mg/dL (70-110); POTASSIUM 4.1 mmol/L (3.5-5.1); SODIUM SERUM 142 mmol/L (136-145); UREA NITROGEN, BLOOD 14 mg/dL (7-18)
[2018-04-23 07:02] LABS: GLOMERULAR FILTR. RATE CALC > 60 mL/min (>60)
[2018-04-23 07:15] VITALS: BP 145/81
[2018-04-23] MEDS: MetFORMIN HCL 500 MG TABLET PO SCH ×2 (08:00→17:28)
[2018-04-23] MEDS: MONTELUKAST SODIUM 10 MG TABLET PO SCH (08:00)
[2018-04-23] MEDS: FAMOTIDINE 20 MG TABLET PO SCH (08:00)
[2018-04-23] MEDS: ATENOLOL 25 MG TABLET PO SCH (08:00)
[2018-04-23] MEDS: FLUTICASONE PROPIONATE 50 MCG/SPRAY 16 GM NASAL SPRAY NASAL SCH (08:00)
[2018-04-23] MEDS: ASPIRIN 81 MG CHEWABLE TABLET PO SCH (08:01)
[2018-04-23] MEDS: TRIAMCINOLONE 0.1% 15 GM CREAM TP SCH (08:01)
[2018-04-23 16:46] VITALS: BP 152/61
[2018-04-23] MEDS: RIVAROXABAN 15 MG TABLET PO SCH (17:28)
[2018-04-23 18:34] LABS: GLUCOMETER DEV NAME(LOC) 2WR 1C; GLUCOSE,POINT OF CARE 136 MG/DL (70-110)
[2018-04-23] MEDS: FEXOFENADINE HCL 60 MG TABLET PO SCH (21:02)
[2018-04-23] MEDS: ATORVASTATIN CALCIUM 40 MG TABLET PO SCH (21:02)
[2018-04-23] MEDS: HydrOXYzine HCL 10 MG TABLET PO SCH (21:02)
[2018-04-23] MEDS: MELATONIN 3 MG TABLET PO PRN (21:03)
[2018-04-23] MEDS: GABAPENTIN 300 MG CAPSULE PO SCH (21:03)
[2018-04-24 04:13] VITALS: BP 115/59
[2018-04-24 06:25] LABS: GLUCOMETER DEV NAME(LOC) 2WR 2E; GLUCOSE,POINT OF CARE 89 MG/DL (70-110)
[2018-04-24 07:37] VITALS: BP 116/63
[2018-04-24] MEDS: FLUTICASONE PROPIONATE 50 MCG/SPRAY 16 GM NASAL SPRAY NASAL SCH (08:23)
[2018-04-24] MEDS: TRIAMCINOLONE 0.1% 15 GM CREAM TP SCH (08:23)
[2018-04-24] MEDS: ATENOLOL 25 MG TABLET PO SCH (08:24)
[2018-04-24] MEDS: MetFORMIN HCL 500 MG TABLET PO SCH (08:24)
[2018-04-24] MEDS: MONTELUKAST SODIUM 10 MG TABLET PO SCH (08:25)
[2018-04-24] MEDS: FAMOTIDINE 20 MG TABLET PO SCH (08:25)
[2018-04-24] MEDS: ASPIRIN 81 MG CHEWABLE TABLET PO SCH (08:25)
[2018-04-24] MEDS ORDERED: ASPI81 PO (09:03)
[2018-04-24] MEDS ORDERED: FAMO20 PO (09:05)
[2018-04-24] MEDS ORDERED: TRIA15CR45 TP (09:23)
[2018-04-24] MEDS ORDERED: MELA3TAB66 PO (10:05)
[2018-04-24] MEDS ORDERED: HYDR-3110 PO (10:06)
[2018-04-24] MEDS ORDERED: GABA-531 PO (10:08)
[2018-04-24] MEDS ORDERED: FLUT16H NASAL (10:08)
== END 2018-04-24 11:45 | disposition home or self-care (01) | DRG 65 ==
LOC: 2WR 19:00
PROVIDERS: ADMIT Physical Medicine & Rehabilitation; ATTEND Physical Medicine & Rehabilitation
PROC: 5A09357 Assistance with Respiratory Ventilation, Less than 24 Consecutive Hours, Continuous Positive Airway Pressure (ICD-10-PCS; principal; 2018-04-09)
PROC: 5A09357 Assistance with Respiratory Ventilation, Less than 24 Consecutive Hours, Continuous Positive Airway Pressure (ICD-10-PCS; 2018-04-10)
PROC: 5A09357 Assistance with Respiratory Ventilation, Less than 24 Consecutive Hours, Continuous Positive Airway Pressure (ICD-10-PCS; 2018-04-12)
PROC: 5A09357 Assistance with Respiratory Ventilation, Less than 24 Consecutive Hours, Continuous Positive Airway Pressure (ICD-10-PCS; 2018-04-13)
PROC: 5A09357 Assistance with Respiratory Ventilation, Less than 24 Consecutive Hours, Continuous Positive Airway Pressure (ICD-10-PCS; 2018-04-18)
PROC: 5A09357 Assistance with Respiratory Ventilation, Less than 24 Consecutive Hours, Continuous Positive Airway Pressure (ICD-10-PCS; 2018-04-20)
PROC: 5A09357 Assistance with Respiratory Ventilation, Less than 24 Consecutive Hours, Continuous Positive Airway Pressure (ICD-10-PCS; 2018-04-23)
DX: I63.9 Cerebral infarction, unspecified (principal); G81.94 Hemiplegia, unspecified affecting left nondominant side; L03.114 Cellulitis of left upper limb; E78.5 Hyperlipidemia, unspecified; G47.33 Obstructive sleep apnea (adult) (pediatric); I10 Essential (primary) hypertension; L40.9 Psoriasis, unspecified; R47.1 Dysarthria and anarthria; Z74.09 Other reduced mobility; D64.9 Anemia, unspecified; E11.40 Type 2 diabetes mellitus with diabetic neuropathy, unspecified; G31.84 Mild cognitive impairment of uncertain or unknown etiology; G47.00 Insomnia, unspecified; G93.89 Other specified disorders of brain; I48.2 Chronic atrial fibrillation; J44.9 Chronic obstructive pulmonary disease, unspecified; K59.00 Constipation, unspecified; Z79.01 Long term (current) use of anticoagulants; Z79.899 Other long term (current) drug therapy; Z87.891 Personal history of nicotine dependence
CPT/HCPCS: 83036; 83540; 83550; 83735; 84153; 87081; 92507; 92508; 92523; 93005; 94660; 97110; 97112; 97116; 97150; 97162; 97167; 97530; 97535; 99366